=== PATIENT | male | born 1960 | race Caucasian/White ===

== ENCOUNTER 2017-12-28 01:25 | Emergency (ER) | END 2017-12-28 07:00 | disposition home or self-care (01) ==

== ENCOUNTER 2018-04-24 01:12 | Emergency (ER) | END 2018-04-24 06:45 | disposition home or self-care (01) ==

== ENCOUNTER 2019-02-11 21:19 | Emergency (ER) | payer OTHER ==
[~2019-02-11] VITALS: Ht 185.4 cm; Wt 96.4 kg
[~2019-02-11 21:19] MED LIST: ASPI-535 PO; MULTI PO; RANI150T35 PO
[2019-02-11 21:25] VITALS: Ht 185.4 cm; Wt 96.4 kg
[2019-02-11] MEDS ORDERED: ASCO500C7 PO (23:51)
[2019-02-11] MEDS ORDERED: BIOT1CAP3 PO (23:51)
[2019-02-11] MEDS ORDERED: LINA145C PO (23:51)
[2019-02-12] MEDS ORDERED: ALPR0.5T PO (01:32)
[2019-02-12 01:35] VITALS: BP 131/84; PULSE 68; RESP 19
--- NOTE | 2019-02-12 01:35 | ERD ---
ER Documentation Chief Complaint Chief Complaint chest pain x 1 week HPI This is a very pleasant 58-year-old gentleman comes in with planes of chest pain on and off for the past week. Pain is midsternal nonexertional and positional no exacerbating alleviating factors. It tends to come in 2 to 3-minute bursts. He says he relates it to anxiety as he is in finals for his school. He said he had read multiple papers in the hospital at undue stress on him. He does not feel that this feels anything like previous heart issues that he has had. No fevers no chills no nausea no vomiting shortness of breath. Did complain of mild perioral numbness and tingling whenever these events would occur. Wanted to be "checked out "to make sure he is not having a heart attack ROS All systems reviewed and are negative except as per history of present illness. Medications Home Meds Active Scripts Alprazolam* (Xanax*) 0.5 Mg Tab, 0.5 MG PO Q8H PRN for ANXIETY, #14 TAB Prov:FATIMAH RAND 02/12/19 Reported Medications Linaclotide (LINZESS) 145 Mcg Capsule, 145 MCG PO DAILY, #30 CAP 02/11/19 Biotin (BIOTIN) 1 Mg Capsule, 1 MG PO DAILY, CAP 02/11/19 Ascorbic Acid* (Vitamin C*) 500 Mg Capsule.sa, 500 MG PO DAILY, CAP 02/11/19 Aspirin Ec (Aspir 81) 81 Mg Tablet.dr, 81 MG PO DAILY, #30 TAB 04/24/18 Multivitamins* (Theragran*) 1 Tab Tab, 1 TAB PO DAILY, TAB 04/24/18 Discontinued Scripts Ranitidine Hcl* (Zantac*) 150 Mg Tablet, 150 MG PO BID PRN for EPIGASTRIC PAIN, #30 TAB Prov:HALDAWITVANNESSA JON 04/24/18 Allergies Allergies: Coded Allergies: erythromycin base (Unverified Allergy, Unknown, 04/24/18) lisinopril (Unverified Allergy, Unknown, 04/24/18) PMhx/Soc History of Surgery: Yes (Multi stents and Cholecystectomy) Anesthesia Reaction: No Hx Neurological Disorder: No Hx Respiratory Disorders: No Hx Cardiac Disorders: Yes (Heart failure, HTN, CAD) Hx Psychiatric Problems: No Hx Miscellaneous Medical Probl: No Hx Alcohol Use: No Hx Substance Use: No Hx Tobacco Use: No Smoking Status: Never smoker Physical Exam Vitals Vital Signs Date Temp Pulse Resp B/P (MAP) Pulse Ox O2 O2 Flow FiO2 Time Delivery Rate 02/12/19 63 18 158/84 94 Room Air 00:34 (108) 02/11/19 69 18 150/98 97 Room Air 23:00 (115) 02/11/19 Nasal 2 22:43 Cannula 02/11/19 97.3 94 18 159/108 97 21:25 (125) Physical Exam Const: No acute distress Head: Atraumatic Eyes: Normal Conjunctiva ENT: Normal External Ears, Nose and Mouth. Neck: Full range of motion. No meningismus. Resp: Clear to auscultation bilaterally Cardio: Regular rate and rhythm, no murmurs Abd: Soft, non tender, non distended. Normal bowel sounds Skin: No petechiae or rashes Back: No midline or flank tenderness Ext: No cyanosis, or edema Neur: Awake and alert Psych: Normal Mood and Affect Result Diagram: 02/11/19223302/11/192233 Results 24 hrs Laboratory Tests Test 02/11/19 22:34 White Blood Count 9.4 10^3/ul Red Blood Count 5.11 10^6/ul Hemoglobin 15.7 g/dl Hematocrit 46.3 % Mean Corpuscular Volume 90.6 fl Mean Corpuscular Hemoglobin 30.7 pg Mean Corpuscular Hemoglobin Concent 33.9 g/dl Red Cell Distribution Width 12.6 % Platelet Count 185 10^3/UL Mean Platelet Volume 11.4 fl Immature Granulocytes % 0.200 % Neutrophils % 57.5 % Lymphocytes % 27.7 % Monocytes % 9.1 % Eosinophils % 5.0 % Basophils % 0.5 % Nucleated Red Blood Cells % 0.0 /100WBC Immature Granulocytes # 0.020 10^3/ul Neutrophils # 5.4 10^3/ul Lymphocytes # 2.6 10^3/ul Monocytes # 0.9 10^3/ul Eosinophils # 0.5 10^3/ul Basophils # 0.1 10^3/ul Nucleated Red Blood Cells # 0.0 10^3/ul Sodium Level 140 mmol/L Potassium Level 4.1 mmol/L Chloride Level 107 mmol/L Carbon Dioxide Level 25 mmol/L Anion Gap 8 Blood Urea Nitrogen 29 mg/dl Creatinine 0.92 mg/dl Est Glomerular Filtrat Rate mL/min > 60 mL/min Glucose Level 99 mg/dl Calcium Level 9.3 mg/dl Total Bilirubin 0.2 mg/dl Direct Bilirubin 0.00 mg/dl Indirect Bilirubin 0.2 mg/dl Aspartate Amino Transf (AST/SGOT) 25 IU/L Alanine Aminotransferase (ALT/SGPT) 25 IU/L Alkaline Phosphatase 101 IU/L Troponin I < 0.012 ng/ml B-Type Natriuretic Peptide 407 PG/ML Total Protein 7.1 g/dl Albumin 4.1 g/dl Globulin 3.00 g/dl Albumin/Globulin Ratio 1.36 Procedures/MDM EKG: Rate/Rhythm: [Normal Sinus Rhythm] QRS, ST, T-waves: [No changes consistent w/ acute ischemia] Impression: [No evidence of ischemia or arrhythmia] Chest X-ray 1V Interpreted by me: Soft Tissue: No acute abnormalities Bones: No acute abnormalities Mediastinum/Cardiac Silhouette/Lungs: [No acute abnormalities] Medical decision making: Patient's thoracic symptoms have stabilized while in the department and are stable for outpatient follow up. Exam and work up not consistent w/ ischemia, arrhythmia, PE or dissection. Departure Diagnosis: Primary Impression: Chest pain Condition: Stable Patient Instructions: Chest Pain, Uncertain Cause FATIMAH RAND February 12, 2019 01:35
== END 2019-02-12 01:35 | disposition home or self-care (01) ==
LOC: E/R 21:19
DX: R07.9 Chest pain, unspecified (principal); I25.10 Atherosclerotic heart disease of native coronary artery without angina pectoris; I11.0 Hypertensive heart disease with heart failure; I50.9 Heart failure, unspecified; Z98.61 Coronary angioplasty status; Z79.82 Long term (current) use of aspirin
CPT/HCPCS: 36415; 71045; 80053; 83880; 84484; 85025; 93005; Z7502

== ENCOUNTER 2019-03-08 23:49 | Emergency (ER) | payer OTHER ==
[~2019-03-08] VITALS: Ht 188 cm; Wt 99.0 kg
[~2019-03-08 23:49] MED LIST changes: +ALPR0.5T PO; +ASCO500C7 PO; +BIOT1CAP3 PO; +LINA145C PO; -RANI150T35 PO
[2019-03-08 23:50] VITALS: Ht 188 cm; Wt 99.0 kg
[2019-03-09] MEDS ORDERED: KETOROLAC 60 MG INJ IM STA (00:28)
--- NOTE | 2019-03-09 00:31 | ERD ---
ER Documentation Chief Complaint Chief Complaint L KNEE PAIN X'S 4 DAYS HPI Patient is a 59 years old male with past medical history of heart failure status post stent (8) placement setting to the clinic for severe left knee pain since 4 days ago. Patient reports the pain came all of a sudden that was worse with mo vement and flexion. Patient denies taking any OTC medication. Patient reports he does not have a primary care provider as of now stating that he moved from [facility]. Patient admits to past medical history of hypertension that was treated with diet. ROS All systems reviewed and are negative except as per history of present illness. Medications Home Meds Active Scripts Ibuprofen* (Motrin*) 800 Mg Tab, 800 MG PO Q6, #30 TAB Prov:JUAN ROMERO PA-C 03/09/19 Alprazolam* (Xanax*) 0.5 Mg Tab, 0.5 MG PO Q8H PRN for ANXIETY, #14 TAB Prov:FATIMAH RAND 02/12/19 Reported Medications Linaclotide (LINZESS) 145 Mcg Capsule, 145 MCG PO DAILY, #30 CAP 02/11/19 Biotin (BIOTIN) 1 Mg Capsule, 1 MG PO DAILY, CAP 02/11/19 Ascorbic Acid* (Vitamin C*) 500 Mg Capsule.sa, 500 MG PO DAILY, CAP 02/11/19 Aspirin Ec (Aspir 81) 81 Mg Tablet.dr, 81 MG PO DAILY, #30 TAB 04/24/18 Multivitamins* (Theragran*) 1 Tab Tab, 1 TAB PO DAILY, TAB 04/24/18 Allergies Allergies: Coded Allergies: erythromycin base (Unverified Allergy, Unknown, 04/24/18) lisinopril (Unverified Allergy, Unknown, 04/24/18) PMhx/Soc Heart failure status post 8 stent placement. HTN with diet control. History of Surgery: Yes (Multi stents and Cholecystectomy) Anesthesia Reaction: No Hx Neurological Disorder: No Hx Respiratory Disorders: No Hx Cardiac Disorders: Yes (Heart failure, HTN, CAD) Hx Psychiatric Problems: No Hx Miscellaneous Medical Probl: No Hx Alcohol Use: No Hx Substance Use: No Hx Tobacco Use: No Smoking Status: Never smoker FmHx Family History: No diabetes, No coronary disease, No other Physical Exam Vitals Vital Signs Date Temp Pulse Resp B/P (MAP) Pulse Ox O2 O2 Flow FiO2 Time Delivery Rate 03/09/19 96.9 59 17 160/84 96 01:56 (109) 03/08/19 97.6 86 18 199/115 98 23:50 (143) Physical Exam Const: No acute distress Head: Atraumatic Eyes: Normal Conjunctiva Resp: Clear to auscultation bilaterally Cardio: Regular rate and rhythm, no murmurs Neur: Awake and alert Psych: Normal Mood and Affect Left Knee Exam: Tenderness to palpation of medial, lateral, and anterior. No swelling noted. Skin intact. Results 24 hrs Current Medications Medications Dose Sig/Darren Start Time Status Last (Trade) Ordered Route PRN Stop Time Admin Dose Reason Admin Ketorolac 60 mg ONCE STAT 03/09/19 DC 03/09/19 Tromethamine IM 00:28 03/09/19 00:46 (Toradol) 00:29 Procedures/MDM Patient was seen and evaluated for left knee pain which is most likely due to osteoarthritis. Left knee x-ray revealed moderate to severe osteoarthrosis at the lateral compartment of the knee joint and mild to moderate osteoarthrosis at the patellofemoral joint and Multiple loose intra-articular ossific bodies. Patient has asymptomatic elevated BP secondary to stress. Patient was advised to F/U with PCP for further evaluation. Patient is stable and ready for discharge. Patient was given orthopedic referral as patient does not have a PCP at the moment. Patient was also given [facility] referral. Departure Diagnosis: Primary Impression: Knee pain Chronicity: acute Laterality: left Qualified Codes: M25.562 - Pain in left knee Additional Impression: Osteoarthritis Osteoarthritis location: knee Osteoarthritis type: primary Laterality: left Qualified Codes: M17.12 - Unilateral primary osteoarthritis, left knee Condition: Stable Patient Instructions: Osteoarthritis Referrals: [facility] Additional Instructions: Patient advised to return to the ED immediately for new or worsening symptoms. Patient advised to follow up with primary care provider in the next 24-48 hours. Patient verbalized understanding and agrees with treatment plan and course of action. If patient has no primary care they may follow up with [facility] [address] [place] [id number] or [facility] [address] [place] [address] [address] JUAN ROMERO PA-C Mar 09, 2019 00:31
[2019-03-09] MEDS ORDERED: IBUP800T48 PO (01:41)
[2019-03-09 01:56] VITALS: BP 160/84; PULSE 59; RESP 17
== END 2019-03-09 02:06 | disposition home or self-care (01) ==
LOC: FTE 23:49
DX: M17.12 Unilateral primary osteoarthritis, left knee (principal); I10 Essential (primary) hypertension; I25.10 Atherosclerotic heart disease of native coronary artery without angina pectoris; I50.9 Heart failure, unspecified; Z79.82 Long term (current) use of aspirin
CPT/HCPCS: 73562; J1885; 96372

== ENCOUNTER 2019-05-05 00:13 | Emergency (ER) | payer OTHER ==
[~2019-05-05] VITALS: Ht 185.4 cm; Wt 97.4 kg
[2019-05-05 00:13] VITALS: Ht 185.4 cm; Wt 97.4 kg
[~2019-05-05 00:13] MED LIST changes: +CYAN500T46 PO; +IBUP800T48 PO
[2019-05-05] MEDS ORDERED: ONDANSETRON 4 MG INJ IV STA (03:05)
[2019-05-05] MEDS ORDERED: morphine 4 MG/ML VIAL IV STA (03:05)
[2019-05-05] MEDS ORDERED: ACETAMINOPHEN 500 MG TAB PO STA (03:25)
[2019-05-05] MEDS ORDERED: ACETAMINOPHEN 500 MG TAB ONE (03:26)
[2019-05-05] MEDS ORDERED: ASPIRIN 81 MG TAB ONE (03:46)
[2019-05-05] MEDS ORDERED: ASPIRIN 81 MG TAB PO ONE (04:00)
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
[2019-05-05] MEDS ORDERED: HYDROmorphONE 0.5 MG/0.5 ML SYG IV STA (05:20)
--- NOTE | 2019-05-05 05:40 | EN ---
Date/Time of Note Date/Time of Note DATE: 05/05/19 TIME: 05:39 ER Progress Note Discussed case with Dr. Richter's cath this patient previously. Patient had diffuse disease back in [address] Richter feels that this is likely progressive disease and will require another catheterization. At this time we are trying to transfer the patient for higher level care to facility that has a working cardiac [facility]. Patient made aware. FATIMAH RAND May 05, 2019 05:40
[2019-05-05] MEDS ORDERED: HYDROmorphONE 2 MG/ML SYG IV STA ×2 (08:26→11:55)
[2019-05-05] MEDS ORDERED: NITROGLYCERIN 2% 1 GM OINT PKT TD STA (08:26)
[2019-05-05] MEDS ORDERED: ONDANSETRON 4 MG INJ IV PRN (08:30)
[2019-05-05] MEDS ORDERED: ACETAMINOPHEN 325 MG TAB PO PRN (08:30)
--- NOTE | 2019-05-05 08:39 | CONS ---
Assessment/Plan Assessment/Plan Hospital Course (Demo Recall) 59 yo with known CAD and NSTEMI, with ongoing chest pain. Patient has been noncompliant with medications and followup. Impression: NSTEMI known ischemic cardiomyopathy Recommendations: Would benefit from transfer to a facility with an active seed analysis laboratory assistant. The seed analysis laboratory assistant here is not functional, and our EP lab and C arm are not ideal for imaging for what will probably be an angioplasty procedure. Echo ASA, statin, bb, arb (marilee causes cough) Nitro/dilaudid/morphine for pain control Consultation Date/Type/Reason Admit Date/Time Date of Consultation: May 05, 2019 Type of Consult Cardiology Reason for Consultation CO Requesting Provider: JESENIA HENRY MD Date/Time of Note DATE: 05/05/19 TIME: 08:23 Hx of Present Illness 59 yo extensive h/o CAD presents with leg pain and chest burning that started about 24 hours prior to admission, and persisted for hours. At present he has 5/10 pain. This pain is similar to prior acute coronary episodes. Pt has not followed up regularly with an MD, is on no meds other than aspirin. Recently, with exertion he has been having chest burning. He does exercise regularly by doing [employer]. Last cath at this hospital demonstrated severe diffuse disease of the RCA, and medical management was recommended. Former smoker, no alcohol, no drugs. Does not know his family history. Constitutional: no complaints Eyes: no complaints ENT: no complaints Respiratory: no complaints Cardiovascular: chest pain Gastrointestinal: other (epigastric burning) Genitourinary: no complaints Musculoskeletal: other (leg pain) Skin: no complaints Neurologic: no complaints Endocrine: no complaints Lymphatic: no complaints Psychological: no complaints Immunologic: no complaints Past Medical History Medical History: coronary artery disease, other (ischemic cardiomyopathy) Home Meds Reported Medications Cyanocobalamin* (Vitamin B12*) 500 Mcg Tab, 500 MCG PO DAILY, TAB 05/05/19 Biotin (BIOTIN) 1 Mg Capsule, 1 MG PO DAILY, CAP 02/11/19 Ascorbic Acid* (Vitamin C*) 500 Mg Capsule.sa, 1000 MG PO DAILY, CAP 02/11/19 Aspirin Ec (Aspir 81) 81 Mg Tablet.dr, 81 MG PO DAILY, #30 TAB 04/24/18 Multivitamins* (Theragran*) 1 Tab Tab, 1 TAB PO DAILY, TAB 7/19/18 Discontinued Reported Medications Linaclotide (LINZESS) 145 Mcg Capsule, 145 MCG PO DAILY, #30 CAP 02/11/19 Discontinued Scripts Ibuprofen* (Motrin*) 800 Mg Tab, 800 MG PO Q6, #30 TAB Prov:JUAN ROMERO PA-C 03/09/19 Alprazolam* (Xanax*) 0.5 Mg Tab, 0.5 MG PO Q8H PRN for ANXIETY, #14 TAB Prov:FATIMAH RAND 02/12/19 Medications Current Medications Ondansetron HCl (Zofran Inj) 4 mg ER BRIDGE PRN IV NAUSEA/VOMITING; Start 05/05/19 at 08:30; Stop 05/06/19 at 08:29 Acetaminophen (Tylenol Tab) 650 mg ER BRIDGE PRN PO .MILD PAIN 1-3 OR TEMP; Start 05/05/19 at 08:30; Stop 05/06/19 at 08:29 Allergies: Coded Allergies: erythromycin base (Unverified Allergy, Unknown, 05/05/19) lisinopril (Unverified Allergy, Unknown, 05/05/19) Past Surgical History Past Surgical Hx: angioplasty Family History Significant Family History: other (patient does not know family history, left home at age 13) Social History Alcohol Use: none Smoking Status: Former smoker Drug Use: none Exam/Review of Systems Vital Signs Vitals Vital Signs Date Temp Pulse Resp B/P (MAP) Pulse Ox O2 O2 Flow FiO2 Time Delivery Rate 05/05/19 72 18 122/72 97 Nasal 2.0 07:08 (89) Cannula 05/05/19 98.4 06:00 Exam Constitutional: alert, oriented, well developed Psych: nl mood/affect Head: normocephalic, atraumatic Eyes: nl conjunctiva, EOMI, nl lids, nl sclera ENMT: nl external ears & nose, nl lips & teeth, nl nasal mucosa & septum Neck: supple, non-tender Respiratory: clear to auscultation, normal air movement Cardiovascular: regular rate and rhythm, nl pulses; No murmurs/extra sounds Gastrointestinal: soft, nl liver, spleen, non-tender Musculoskeletal: nl extremities to inspection Extremities: normal pulses Neurological: nl mental status, nl speech Skin: No rash or lesions Lymph: nl lymph nodes Labs Result Diagram: 05/05/19 0241 05/05/19 0241 Results 24hrs Laboratory Tests Test 05/05/19 02:41 05/05/19 06:32 White Blood Count 12.6 #H Red Blood Count 4.69 L Hemoglobin 14.6 Hematocrit 43.6 Mean Corpuscular Volume 93.0 Mean Corpuscular Hemoglobin 31.1 Mean Corpuscular Hemoglobin Concent 33.5 Red Cell Distribution Width 12.7 Platelet Count 176 Mean Platelet Volume 11.4 H Immature Granulocytes % 0.200 Neutrophils % 66.7 Lymphocytes % 19.8 Monocytes % 10.5 Eosinophils % 2.4 Basophils % 0.4 Nucleated Red Blood Cells % 0.0 Immature Granulocytes # 0.030 Neutrophils # 8.4 H Lymphocytes # 2.5 Monocytes # 1.3 H Eosinophils # 0.3 Basophils # 0.1 Nucleated Red Blood Cells # 0.0 Sodium Level 141 Potassium Level 4.3 Chloride Level 103 Carbon Dioxide Level 32 H Anion Gap 6 Blood Urea Nitrogen 19 Creatinine 1.18 Est Glomerular Filtrat Rate mL/min > 60 Glucose Level 117 Calcium Level 9.6 Total Bilirubin 0.8 Direct Bilirubin 0.00 Indirect Bilirubin 0.8 Aspartate Amino Transf (AST/SGOT) 77 H Alanine Aminotransferase (ALT/SGPT) 45 Alkaline Phosphatase 107 Troponin I 2.410 *H 4.650 *H B-Type Natriuretic Peptide 1020 H Total Protein 7.6 Albumin 4.2 Globulin 3.40 H Albumin/Globulin Ratio 1.23 Lipase 27 Imaging Imaging NSR at 70 bpm, inferior and anterolateral infarcts with lateral T inversions, nonspecific IVCD Medications Medications Current Medications Ondansetron HCl (Zofran Inj) 4 mg ER BRIDGE PRN IV NAUSEA/VOMITING; Start 05/05/19 at 08:30; Stop 05/06/19 at 08:29 Acetaminophen (Tylenol Tab) 650 mg ER BRIDGE PRN PO .MILD PAIN 1-3 OR TEMP; Start 05/05/19 at 08:30; Stop 05/06/19 at 08:29 ZAIN KRAUSE May 05, 2019 08:33
[2019-05-05] MEDS ORDERED: METOPROLOL (XL) 25 MG TAB PO ONE (09:00)
[2019-05-05] MEDS ORDERED: LOSARTAN 25 MG TAB PO ONE (09:00)
[2019-05-05] MEDS ORDERED: ATORVASTATIN 80 MG TAB PO ONE (09:00)
[2019-05-05] MEDS ORDERED: HYDROmorphONE 1 MG/ML SYG IV STA (12:05)
[2019-05-05 13:34] VITALS: BP 118/76; PULSE 69; RESP 18
--- NOTE | 2019-05-06 06:32 | RADRPT ---
Echocardiogram Report Patient Name: JIM CARRENOPatient ID: [id number] : 1960 (59y 2m)Study Date: 05/05/2019 10:47:21 AM Gender: MAccession #: [id number] Tech: Risa Glasgow RDCS Location: [facility] Ref.Physician: BRANDEE KRAUSE Height(Cm): BSA: Weight(Kg): Quality: AdequateAccount #: [id number] Procedures: Echocardiographic Report: Transthoracic echocardiogram with complete 2D, M-Mode, and doppler examination. Indications: Myocardial Infarction. Measurements: 2D/M Mode Doppler Measurement Value Normal Range Measurement Value Normal Range LVIDd 2D 5.7 [ 4.2 - 5.8 ] cm AV Peak Carlos 1.4 [ 100.0 - 170.0 ] cm/sec LVIDs 2D 4.4 [ 2.5 - 4.0 ] cm AV Peak PG 8.0 [ 2.0 - 9.0 ] mmHg LVPWd 2D 1.0 [ 0.6 - 1.0 ] cm LVOT Peak Carlos 0.8 [ 70.0 - 110.0 ] cm/sec IVSd 2D 1.0 [ 0.6 - 1.0 ] cm LVOT Peak PG 3.0 [ 2.0 - 6.0 ] mmHg AoR Diam 2D 2.6 [ 2.6 - 3.4 ] cm MV E Peak Carlos 0.9 [ 60.0 - 130.0 ] cm/sec EDV 2D 162.0 [ 62.0 - 150.0 ] ml MV A Peak Carlos 0.6 [ 100.0 - 120.0 ] cm/sec ESV 2D 87.7 [ 21.0 - 61.0 ] ml MV E/A 1.6 [ 0.8 - 1.5 ] ratio EF 2D 45.9 [ 52.0 - 72.0 ] percent MV Decel Time 165 [ 104 - 258 ] msec LA Dimen 2D 4.0 [ 3.0 - 4.0 ] cm Lat E` Carlos 0.1 [ 10.0 - 15.0 ] cm/sec Lateral E/E` 7.7 [ 1.0 - 2.0 ] ratio Med E` Carlos 0.1 cm/sec MV E/A 1.6 [ 0.8 - 1.5 ] ratio TR Peak Carlos 2.2 [ 100.0 - 280.0 ] cm/sec TR Peak PG 19.0 mmHg RVSP 22.0 [ 10.0 - 36.0 ] mmHg RA Pressure 3.0 mmHg Findings: Left Ventricle: Normal left ventricular cavity size. Normal left ventricular wall thickness. Severe left ventricular systolic dysfunction. Ejection fraction is visually estimated at 30 %. Tissue Doppler/Mitral Doppler indices are within normal limits. These segments of the LV are hypokinetic apical lateral segment, inferior apex segment, apex and apical septum. Right Ventricle: Normal right ventricular size. Normal right ventricular systolic function. Left Atrium: Upper limit of normal left atrial size. Right Atrium: The right atrium is normal in size. Mitral Valve: Mitral valve leaflets appear mildly thickened. Mild mitral annular calcification. Mild to moderate mitral valve regurgitation. The regurgitation jet is eccentrically directed which may underestimate the severity of mitral regurgitation. Aortic Valve: No significant aortic stenosis or insufficiency. Aortic cusps appear mildly calcified. Tricuspid Valve: Normal appearance and function of the tricuspid valve with trace physiologic regurgitation. Normal right ventricular systolic pressure. The estimated Peak RVSP is 22 mmHg. Pulmonic Valve: Pulmonic valve not well visualized. Pericardium: Normal pericardium with no significant pericardial effusion. Aorta: Normal aortic root. IVC: Normal size and normal respiratory collapse consistent with normal right atrial pressure. Conclusions: Severely reduced LV systolic function with large LAD distribution wall motion abnormality. Left atrium at upper limits of normal. Mild-moderate mitral regurgitation with posteriorly directed jet. Trace tricuspid regurgitation and normal measured pulmonary pressures. Electronically Signed By: Brandee Krause 2019-05-06 06:31:10 PDT
== END 2019-05-05 13:35 | disposition short-term general hospital (02) ==
LOC: E/R 00:13 → EDBEDREQ 08:58 → EDBEDREQSVC 08:58 → CANBEDREQ 11:56 → E/R 13:35
DX: I21.4 Non-ST elevation (NSTEMI) myocardial infarction (principal); I10 Essential (primary) hypertension; I25.10 Atherosclerotic heart disease of native coronary artery without angina pectoris; I50.9 Heart failure, unspecified; Z79.82 Long term (current) use of aspirin; Z98.61 Coronary angioplasty status
CPT/HCPCS: 71045; 80053; 80061; 83690; 83880; 84484; 85025; 93005; 93306; J1170; J2270; J2405; Z7610; 36415; 96374; 96375; 96376